=== PATIENT | male | born 1965 | race Caucasian/White ===

== ENCOUNTER 2016-06-03 08:20 | Emergency (ER) | payer OTHER ==
[2016-06-03 08:24] VITALS: BMI 29.8
--- NOTE | 2016-06-03 09:20 | PDOC ---
History of Present Illness - General Chief Complaint: Edema Stated Complaint: SWOLLEN LT LEGS Time Seen by Provider: 06/03/16 08:37 History Source: Patient Exam Limitations: No Limitations - History of Present Illness Initial Comments: 06/03/16 10:28 Patient is a 50 year old male with a PMHx of alcohol abuse, DM, HLD who presents to the ED complaining of left leg pain that occurred two weeks ago and worsened last night to the point where he was unable to sleep, which prompted this ED visit. Patient reports the pain started in the left ankle and progressively radiated to the the knee. Now the patient reports his knee is extremely painful and is now unable to walk without a walking cane. Patient does have a history of alcohol abuse and when asked if he had any traumas or falls he is unable to recall a fall or injury. He does however state that it is possible. He denies fever, chills, nausea, vomiting, abdominal pain He denies shortness of breath, palpitations, chest pain He denies dizziness, acute vision loss, headaches, loss of consciousness PMHx: alcohol abuse, DM, HLD PSHx: None MEDS: Refer to ambulatory medications Allergies: Eggs Social: 6 cigarettes/day, denies drug use, admits to alcohol abuse with 2 6 pack beers a day with last drink 8 days ago PCP: James Rodney Past History - Past Medical History Allergies/Adverse Reactions: Allergies Allergy/AdvReac Type Severity Reaction Status Date / Time egg AdvReac Verified 06/03/16 08:24 Home Medications: Ambulatory Orders Aspirin [ASA -] 81 mg PO DAILY 06/03/16 Atorvastatin Ca [Lipitor] 40 mg PO HS 06/03/16 Ibuprofen [Motrin -] 800 mg PO TID 06/03/16 Metformin HCl [Glucophage -] 500 mg PO BID 06/03/16 Oxycodone HCl/Acetaminophen [Percocet 5-325 mg Tablet] 1 - 2 tab PO Q6H PRN #20 tab MDD 8 06/03/16 Diabetes: Yes Hypercholesterolemia: Yes - Psycho/Social/Smoking Cessation Hx Anxiety: No Suicidal Ideation: No Smoking History: Current every day smoker Number of Cigarettes Smoked Daily: 6 Information on smoking cessation initiated: No 'Breaking Loose' booklet given: 09/18/15 Hx Alcohol Use: Yes (SOCIAL) Drug/Substance Use Hx: No Substance Use Type: None Review of Systems - Review of Systems Constitutional: No: Chills, Diaphoresis, Fever, Loss of Appetite HEENTM: No: Blurred Vision, Nose Bleeding, Throat Pain, Throat Swelling, Difficulty Swallowing Respiratory: No: Cough, Orthopnea, Shortness of Breath, SOB with Exertion, SOB at Rest, Wheezing, Productive cough Cardiac (ROS): No: Chest Pain, Edema, Irregular Heart Rate, Lightheadedness, Palpitations, Syncope, Chest Tightness ABD/GI: No: Diarrhea, Nausea, Vomiting : Yes: Burning, Dysuria. No: Discharge, Frequency Musculoskeletal: Yes: Joint Pain (left knee and ankle ). No: Back Pain Integumentary: No: Bruising, Erythema Neurological: No: Headache, Numbness, Paresthesia Psychiatric: No: Anxiety, Depression Endocrine: No: Intolerance to Cold, Intolerance to Heat Hematologic/Lymphatic: No: Anemia, Blood Clots *Physical Exam - Vital Signs Last Vital Signs Temp Pulse Resp BP Pulse Ox 98.6 F 85 20 152/104 97 06/03/16 08:21 06/03/16 08:21 06/03/16 08:21 06/03/16 08:21 06/03/16 08:21 - Physical Exam Comments: 06/03/16 09:45 GENERAL: Awake, alert, oriented and in mild painful distress HEENT: Normocephalic, atraumatic. PERRLA, EOMI. No conjunctival pallor. Sclera are non-icteric. Moist mucous membranes. Oropharynx is clear. NECK: Supple. Full ROM. No JVD. Carotid pulses 2+ and symmetric, without bruits. No thyromegaly. No lymphadenopathy. CARDIOVASCULAR: Regular rate and rhythm. No murmurs, rubs, or gallops. Distal pulses are 2+ and symmetric. PULMONARY: No evidence of respiratory distress. Lungs clear to auscultation bilaterally. No wheezing, rales or rhonchi. ABDOMINAL:Soft. Non-tender. Non-distended. No rebound or guarding. No organomegaly. Normoactive bowel sounds. MUSCULOSKELETAL: Normal range of motion at all joints. EXTREMITIES: Minimal soft tissue swelling of the left leg with some ecchymosis. Tenderness upon palpation of proximal tibia and distal fibula with mild prepatellar tenderness and swelling. Pain when flexing left leg. (-) knee effusion SKIN: Warm and dry. Normal capillary refill. No rashes. No jaundice. NEUROLOGICAL: Alert, awake, appropriate. Cranial nerves 2-12 intact. No motor deficits in the in face, upper extremities and lower extremities. Normal speech. PSYCHIATRIC: Cooperative. Good eye contact. Appropriate mood and affect. ED Treatment Course - LABORATORY CBC & Chemistry Diagram: 06/03/16 09:26 06/03/16 09:26 Medical Decision Making - Medical Decision Making 06/03/16 09:30 Patient is a 50 year old male with a PMHx of Alcohol abuse, DM, HLD who presents to the ED complaining of left knee and ankle pain that began two weeks ago and has progressively worsened overnight. Differential diagnosis include but not limited to Tib-fib fracture, Knee fracture, torn meniscus, ankle sprain , DVT. ED Course and Treatment -CBC -CMP -Blood cultures -Doppler of left leg to rule out DVT -X-ray of knee and jarrod 06/03/16 10:48 -Doppler negative for DVT -CMP and CBC wnl -Blood cultures pending -X-ray of knee pending 06/03/16 13:42 -X-ray of the knee and ankle reveal no acute pathology -Patient re-evaluated and was ambulating on the cane with a limp and tenderness -CT of lower extremity ordered 06/03/16 15:17 -Lower extremity CT negative for acute fracture or dislocation -Patient given knee mobilizer and crutches and is able to ambulate without difficulty -Patient may be discharged with instructions *DC/Admit/Observation/Transfer Diagnosis at time of Disposition: Knee pain Qualifiers: Laterality: left Chronicity: acute Qualified Code(s): M25.562 - Pain in left knee - Discharge Dispostion Disposition: HOME Condition at time of disposition: Stable Admit: No - Prescriptions Prescriptions: Oxycodone HCl/Acetaminophen [Percocet 5-325 mg Tablet] 1 - 2 tab PO Q6H PRN #20 tab MDD 8 PRN Reason: Pain - Patient Instructions Additional Instructions: -Knee mobilizer was placed on you today. Continue to use it with your crutches -Will send pain medications to your pharmacy. Please warehouse order picker your prescription -Elevate your legs when laying down -Follow up with your primary care physician within a week -If you experience extreme pain or fever >103.0 F, return to the ED
[2016-06-03] MEDS ORDERED: morphine CARPU-JECT 2 MG/1 ML DISP.SYRIN IVPUSH ONE ×2 (09:24→10:48)
--- NOTE | 2016-06-03 09:27 | PDOC ---
Attending Attestation - Resident Resident Name: Margarita Benitez - ED Attending Attestation I have performed the following: I have examined & evaluated the patient, The case was reviewed & discussed with the resident, I agree w/resident's findings & plan, Exceptions are as noted - HPI HPI: 06/03/16 09:22 50-year-old male with history of alcohol abuse presents with 2 weeks of progressive left lower extremity pain that began and his ankle, now progressing to his knee, with difficulty walking and swelling. No cardiopulmonary complaints. - Physicial Exam PE: 06/03/16 09:22 Left leg: Mild soft tissue swelling, some resolving ecchymosis, tenderness to the proximal tibia and distal fibula. Neurovascular intact, mild prepatellar soft tissue swelling but no knee effusion , full range of motion of joints - Medical Decision Making 06/03/16 09:24 Patient seen and evaluated with the resident. I agree with the overall evaluation, assessment, and management with the following summary of visit: 50-year-old male with progressive left leg pain, seems most consistent with injury, rule out tibial plateau for ankle fracture. Rule out DVT. No evidence of cellulitis or infection. X-rays, Doppler Pain control Reassess
[2016-06-03] MEDS ORDERED: morphine CARPU-JECT 2 MG/1 ML DISP.SYRIN ONE ×2 (09:33→10:50)
[2016-06-03 09:36] LABS: BASOPHIL 0.7 % (0-2.0); EOSINOPHIL 5.7 % (0-4.5); MCH 27.8 pg (25.7-33.7); MCHC 33.3 g/dl (32.0-35.9); MEAN CELL VOLUME 83.4 fl (80-96); MEAN PLT VOLUME 8.2 fl (7.5-11.1); NEUTROPHILS 50.2 % (42.8-82.8); PLATELET COUNT 267 K/MM3 (134-434); RDW 13.1 % (11.9-15.9); WHITE BLOOD COUNT 6.8 K/mm3 (4.0-10.0)
[2016-06-03 10:03] LABS: ALBUMIN 3.6 g/dl (3.4-5.0); ALK PHOS 133 U/L (45-117); ANION GAP 6 (8-16); BILIRUBIN,TOTAL 0.3 mg/dL (0.2-1.0); CALCIUM 8.8 mg/dL (8.5-10.1); CO2 26 mmol/L (21-32); CREATININE 0.7 mg/dL (0.7-1.3); GLUCOSE,RANDOM 167 mg/dL (74-106); SGOT/AST 27 U/L (15-37); SGPT/ALT 49 U/L (12-78); TOT PROT 7.3 g/dl (6.4-8.2)
[2016-06-03] MEDS ORDERED: OXYCODONE/APAP 5/325MG COMBO TABLET PO ONE (14:31)
[2016-06-03] MEDS ORDERED: OXYCODONE/APAP 5/325MG COMBO TABLET ONE (14:50)
[2016-06-03 15:31] VITALS: BP 138/92; PULSE 70; TEMP 98.1
== END 2016-06-03 15:31 | disposition home or self-care (01) ==
LOC: JER 08:20
PROC: 3E033NZ Introduction of Analgesics, Hypnotics, Sedatives into Peripheral Vein, Percutaneous Approach (ICD-10-PCS; principal; 2016-06-03)
DX: M25.562 Pain in left knee (principal); F10.21 Alcohol dependence, in remission; E11.9 Type 2 diabetes mellitus without complications; E78.5 Hyperlipidemia, unspecified; F17.210 Nicotine dependence, cigarettes, uncomplicated
CPT/HCPCS: 36415; 73562-TC-LT; 73610-TC-LT; 73700-TC-RT; 80053; 85025; 87040; 93971-TC; 96374; 96375; 99285-25